=== PATIENT | female | born 1935 | race Caucasian/White ===

== ENCOUNTER 2017-12-08 12:01 | Inpatient (IN) | payer MEDICARE, MEDICAID, SELFPAY ==
[2017-12-08 12:02] VITALS: BMI 22.4
--- NOTE | 2017-12-08 12:03 | XR_ITS ---
XR chest portable COMPARISON: None HISTORY: Shortness of TECHNIQUE: Portable upright chest FINDINGS: This a poor inspiratory effort. There are coarse bronchovascular markings in right perihilar region and right lower lobe. Minimal accentuated markings are seen right upper lobe, left lung field is clear. Cardiac size is normal. There are sternal wire sutures noted. IMPRESSION: Findings suggesting right lower lobe bronchopneumonia with questionable right upper lobe involvement as well.
[2017-12-08 12:07] VITALS: BP 82/56; PULSE 85; RESP 20; TEMP 36.6; O2SAT 95; BMI 22.4
--- NOTE | 2017-12-08 12:27 | XR_ITS ---
XR acute abdomen series COMPARISON: None HISTORY: Altered mental status, TECHNIQUE: PA chest, KUB and upright abdomen FINDINGS: The chest film again shows coarse markings in right perihilar region and right lower lobe. The remainder lung lao are clear. Abdominal films show dilated loops of small bowel in the midabdomen. There is mild gaseous dilatation of the cecum and ascending colon as well. The distal small bowel loops appear to be normal in caliber. There is no evidence of free air. IMPRESSION: 1. Probable right perihilar right lower lobe bronchopneumonia 2. Abnormal bowel gas pattern with findings suggesting the possibility of an early or partial mechanical small bowel obstruction. However the dilated cecum and lower ascending colon and gas in the distal small bowel raises the possibility of an adynamic ileus. She has clinical correlation and follow-up abdominal films and 12 to 24 hours for continuing evaluation.
--- NOTE | 2017-12-08 12:27 | CT_ITS ---
CT head/brain wo con COMPARISON: None HISTORY: Altered mental status TECHNIQUE: Multiple axial scans obtained from base skull to the vertex and were performed without IV contrast. FINDINGS: The base of skull appears normal, the mastoids are clear. There is minimal mucoperiosteal thickening of the left maxillary sinus. The ventricular system is normal. There is a somewhat ill-defined hypodense lesion left internal capsule extending superiorly into the centrum semiovale ovale. Motion artifact degrades the images somewhat. There is no bleed. There are more diffuse reticular hypodensities consistent with chronic ischemic white matter changes. Sylvian fissures and cortical sulci are prominent. There are no extra-axial fluid collections. Bony calvarium appears intact. 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 If symptoms warrant follow-up MRI scan of brain may be helpful to better age the suspected ischemic infarct
--- NOTE | 2017-12-08 12:29 | HMH.EDAMS ---
ED Disposition Clinical Impression: Acute renal failure, Pneumonia, Dehydration Disposition: Home, Self-Care Condition on Discharge: Fair - Critical Care Critical Care Time: No Attestation: On 12/08/17, the high probability of a clinically significant, sudden or life threatening deterioration of the following system(s) required my full and direct attention, intervention and personal management. The time I documented below is in addition to time spent performing reported procedures but includes the following listed in this critical care notation. Medical Decision Making - Medical Records Medical records reviewed: Yes: I reviewed the patient's medical records. Vital Signs: 12/08/17 12:07 Temperature 98 F Temperature Source Oral Pulse Rate [Right Brachial] 85 Respiratory Rate 20 Blood Pressure [Right Arm] 82/56 Blood Pressure Mean [Right Arm] 64 Blood Pressure Source [Right Arm] Automatic Cuff Blood Pressure Position [Right Arm] Sitting 02 Sat by Pulse Oximetry 95 Oxygen Delivery Method Room Air - Lab Data Lab Results 12/08/17 12:20: Influenza Type A Ag Negative, Influenza Type B Ag Negative 12/08/17 12:30: WBC 18.2 H, RBC 2.69 L, Hgb 8.9 L, Hct 27.7 L, MCV 102.9 H, MCH 33.2 H, MCHC 32.3, RDW 14.1, Plt Count 89 L, MPV 11.9 H, Neut % (Auto) 80.0, Lymph % (Auto) 6.8 L, [place] % (Auto) 12.8 H, Eos % (Auto) 0.3, Baso % (Auto) 0.1, Neut # (Auto) 14.5 H, Lymph # (Auto) 1.2, [place] # (Auto) 2.3 H, Eos # (Auto) 0.1, Baso # (Auto) 0.0, Total Counted 100, Neutrophils % (Manual) 55, Band Neutrophils % 23.0 H, Lymphocytes % (Manual) 3 L, Monocytes % (Manual) 19 H, Platelet Estimate Moderate decrease, RBC Morphology Normal 12/08/17 12:30: Sodium 140, Potassium 5.5 H, Chloride 105, Carbon Dioxide 20 L, Anion Gap 20.5 H, BUN 55 H, Creatinine 4.19 H, Estimated Creat Clear 9, Estimated GFR 10 L*, Est GFR ( Amer) 12 L*, Glucose 108 H, Calcium 7.8 L, Total Bilirubin 0.6, AST 6 L, ALT 11 L, Alkaline Phosphatase 120 H, Total Creatine Kinase 34, CK-MB (CK-2) 1.5, CK-MB (CK-2) Rel Index 4.4 H, Troponin I < 0.02, Total Protein 7.0, Albumin 2.8 L, Globulin 4.2 H, Albumin/Globulin Ratio 0.7 L, TSH 1.57, Free T4 2.75 H 12/08/17 12:30: Lactic Acid 2.2 H 12/08/17 12:42: Specimen Source Right radial, O2 % Room air, ABG pH 7.39, ABG pCO2 27.2 L, ABG pO2 63.1 L, ABG HCO3 16.0 L, ABG Total CO2 16.9 L, ABG O2 Saturation 92, ABG Base Excess -9.0 L, Yovani Test Acceptable Result diagrams: 12/08/17 12:30 12/08/17 12:30 Orders (Tests/Meds): ED MEDICATIONS Generic Name Dose Route Start Last Admin Trade Name Freq PRN Reason Stop Dose Admin Sodium Chloride 1,000 mls @ 500 mls/hr 12/08/17 13:00 Sod Chlor 0.9% 1000ml Bag IV 01/07/18 12:59 .Q2H HIRAM Cefepime HCl 1 gm/ Sodium 100 mls @ 200 mls/hr 12/08/17 13:00 Chloride IV 12/22/17 12:59 Q12H [facility] Protocol Levofloxacin/Dextrose 750 mg in 150 mls @ 100 mls/hr 12/08/17 13:00 Levofloxacin 750mg/150ml Premix IV 12/22/17 12:59 Q24H [facility] Protocol ORDERS Category Date Time Status CT head/brain wo con Stat Cat Scan 12/08/17 12:27 Taken XR acute abdomen series Stat Exams 12/08/17 12:27 Taken XR chest portable Stat Exams 12/08/17 12:03 Taken Lactic Acid Follow Up (4 hr) Stat Lab 12/08/17 13:03 Ordered Urinalysis and Microscopic Stat Lab 12/08/17 12:27 Ordered Blood Culture Stat Micro 12/08/17 12:30 Received ABG [Arterial Blood Gas] Stat RT 12/08/17 12:27 Ordered - Radiology Data #1 Image(s): Chest Image Reviewed: Yes I reviewed the patient's radiology image Preliminary Findings: Abnormal Increased density in the right perihilar lesion, new lingular infiltrates. Impression pneumonia. - ECG Data Tracing #1 Sinus bradycardia 58/min baseline artifact no acute findings, unchanged from March 04, 2015. I reviewed her EKG rhythm strip from the ambulance that showed T-wave inversion in lead III this is absent in the 1
--- NOTE | 2017-12-08 12:41 | ED_ITS ---
ED Disposition Clinical Impression: Acute renal failure, Pneumonia, Dehydration Disposition: Home, Self-Care Condition on Discharge: Fair - Critical Care Critical Care Time: No Attestation: On 12/08/17, the high probability of a clinically significant, sudden or life threatening deterioration of the following system(s) required my full and direct attention, intervention and personal management. The time I documented below is in addition to time spent performing reported procedures but includes the following listed in this critical care notation. Medical Decision Making - Medical Records Medical records reviewed: Yes: I reviewed the patient's medical records. Vital Signs: 12/08/17 12:07 Temperature 98 F Temperature Source Oral Pulse Rate [Right Brachial] 85 Respiratory Rate 20 Blood Pressure [Right Arm] 82/56 Blood Pressure Mean [Right Arm] 64 Blood Pressure Source [Right Arm] Automatic Cuff Blood Pressure Position [Right Arm] Sitting 02 Sat by Pulse Oximetry 95 Oxygen Delivery Method Room Air - Lab Data Lab Results 12/08/17 12:20: Influenza Type A Ag Negative, Influenza Type B Ag Negative 12/08/17 12:30: WBC 18.2 H, RBC 2.69 L, Hgb 8.9 L, Hct 27.7 L, MCV 102.9 H, MCH 33.2 H, MCHC 32.3, RDW 14.1, Plt Count 89 L, MPV 11.9 H, Neut % (Auto) 80.0, Lymph % (Auto) 6.8 L, [place] % (Auto) 12.8 H, Eos % (Auto) 0.3, Baso % (Auto) 0.1 , Neut # (Auto) 14.5 H, Lymph # (Auto) 1.2, [place] # (Auto) 2.3 H, Eos # (Auto) 0.1, Baso # (Auto) 0.0, Total Counted 100, Neutrophils % (Manual) 55, Band Neutrophils % 23.0 H, Lymphocytes % (Manual) 3 L, Monocytes % (Manual) 19 H, Platelet Estimate Moderate decrease, RBC Morphology Normal 12/08/17 12:30: Sodium 140, Potassium 5.5 H, Chloride 105, Carbon Dioxide 20 L, Anion Gap 20.5 H, BUN 55 H, Creatinine 4.19 H, Estimated Creat Clear 9, Estimated GFR 10 L*, Est GFR ( Amer) 12 L*, Glucose 108 H, Calcium 7.8 L , Total Bilirubin 0.6, AST 6 L, ALT 11 L, Alkaline Phosphatase 120 H, Total Creatine Kinase 34, CK-MB (CK-2) 1.5, CK-MB (CK-2) Rel Index 4.4 H, Troponin I < 0.02, Total Protein 7.0, Albumin 2.8 L, Globulin 4.2 H, Albumin/Globulin Ratio 0.7 L, TSH 1.57, Free T4 2.75 H 12/08/17 12:30: Lactic Acid 2.2 H 12/08/17 12:42: Specimen Source Right radial, O2 % Room air, ABG pH 7.39, ABG pCO2 27.2 L, ABG pO2 63.1 L, ABG HCO3 16.0 L, ABG Total CO2 16.9 L, ABG O2 Saturation 92, ABG Base Excess -9.0 L, Yovani Test Acceptable Result diagrams: 12/08/17 12:30 12/08/17 12:30 Orders (Tests/Meds): ED MEDICATIONS Generic Name Dose Route Start Last Admin Trade Name Timq PRN Reason Stop Dose Admin Sodium Chloride 1,000 mls @ 500 mls/hr 12/08/17 13:00 Sod Chlor 0.9% 1000ml Bag IV 01/07/18 12:59 .Q2H HIRAM Cefepime HCl 1 gm/ Sodium 100 mls @ 200 mls/hr 12/08/17 13:00 Chloride IV 12/22/17 12:59 Q12H [facility] Protocol Levofloxacin/Dextrose 750 mg in 150 mls @ 100 mls/hr 12/08/17 13:00 Levofloxacin 750mg/150ml Premix IV 12/22/17 12:59 Q24H HIRAM Protocol ORDERS Category Date Time Status CT head/brain wo con Stat Cat Scan 12/08/17 12:27 Taken XR acute abdomen series Stat Exams 12/08/17 12:27 Taken XR chest portable Stat Exams 12/08/17 12:03 Taken Lactic Acid Follow Up (4 hr) Stat Lab 12/08/17 13:03 Ordered Urinalysis and Microscopic Stat Lab 12/08/17 12:27 Ordered
[2017-12-08 12:49] LABS: ABG Oxygen Saturation 92 % (90-100); ABG PCO2 27.2 mmhg (35.0-45.0); ABG PH 7.39 mmol/L (7.35-7.45); ABG PO2 63.1 mmhg (80-100); ABG TCO2 16.9 mmhg (23-27)
[2017-12-08 12:49] LABS: Basophils % 0.1 % (0.1-2.0); Eosinophils # 0.1 K/mm3 (0.0-0.4); Eosinophils % 0.3 % (0.1-12.0); Hematocrit 27.7 % (37.0-47.0); Hemoglobin 8.9 g/dL (12.2-16.2); Lymphocytes # 1.2 K/mm3 (0.7-4.5); Lymphocytes % 6.8 K/mm3 (10-50); Mean Corpuscular HGB Conc 32.3 g/dL (31.8-35.4); Mean Corpuscular Hemoglobin 33.2 pg (27.0-31.2); Mean Corpuscular Volume 102.9 fl (81-99); Mean Platelet Volume 11.9 fl (7.4-10.4); Monocytes # 2.3 K/mm3 (0.1-1.0); Monocytes % 12.8 % (1.7-9.3); Neutrophils # 14.5 K/mm3 (1.8-7.8); Platelet Count 89 K/mm3 (142-424); Red Blood Count 2.69 M/mm3 (4.20-5.40); Red Cell Distribution Width 14.1 % (11.5-17.5); White Blood Count 18.2 K/mm3 (4.8-10.8)
[2017-12-08 12:50] LABS: Allen's Test ACCEPTABLE; Oxygen ROOM AIR %; Source Right Radial
[2017-12-08 12:52] LABS: MANUAL DIFFERENTIAL MANUAL DIFFERENTIAL (MANUAL DIFF)
[2017-12-08 13:02] LABS: Lactic Acid 2.2 mmol/L (0.4-2.0)
[2017-12-08 13:03] LABS: Reflex Lactic Add Lactic Reflex
[2017-12-08 13:05] LABS: Lymphocytes % 3 % (10-50); Monocytes % 19 % (2-9); Neutrophils % 55 % (42-76); Total Cells Counted 100
[2017-12-08 13:06] LABS: Platelet Estimate Moderate Decrease; RBC Morphology Normal
[2017-12-08 13:14] LABS: Alanine Aminotransferase 11 U/L (12-78); Albumin Level 2.8 gm/dL (3.4-5.0); Albumin/Globulin Ratio 0.7 (1.1-1.8); Alkaline Phosphatase 120 U/L (46-116); Anion Gap 20.5 mEq/L (5-15); Aspartate Amino Transferase 6 U/L (15-37); Bilirubin,Total 0.6 mg/dL (0.2-1.0); Blood Urea Nitrogen 55 mg/dL (7-18); CKMB Relative Index 4.4 U/L (0-4.0); Calcium 7.8 mg/dL (8.5-10.1); Carbon Dioxide 20 mmol/L (21.0-32.0); Chloride 105 mmol/L (98-107); Creatine Kinase 34 U/L (26-192); Creatine Kinase MB 1.5 mg/ml (0.0-3.6); Creatinine Clearance Estimated 9 mL/min (0-300); Estimated Glomerular Filt Rate 10 ml/min (>60); Free T4 (Free Thyroxine) 2.75 ng/dl (0.76-1.46); GFR (African American) 12 ML/MIN (>60); Globulin 4.2 gm/dl (1.3-3.2); Glucose 108 mg/dL (74-106); Potassium 5.5 mmoL/L (3.5-5.1); Sodium 140 mmol/L (136-145); Thyroid Stimulating Hormone 1.57 uIU/ml (0.358-3.740); Troponin I < 0.02 ng/ml (0.00-0.06)
[2017-12-08 13:16] LABS: Creatinine,Serum 4.19 mg/dL (0.55-1.02)
[2017-12-08 14:28] VITALS: BP 110/50; PULSE 76; RESP 18; TEMP 37.7; O2SAT 100; BMI 19.1
[2017-12-08 15:18] VITALS: BP 122/50; PULSE 81; RESP 18; TEMP 36.8; O2SAT 98
[2017-12-08 15:23] VITALS: BP 85/50; PULSE 67; RESP 18; O2SAT 96
--- NOTE | 2017-12-08 16:15 | HMH.HP ---
*Admission Date: 12/08/17 *Chief complaint: Mental status change, hypoxia *History of present illness: 82-year-old white female, resident [place] local [facility], this morning noted to have low oxygen saturations, mental status change and lethargy, elevated temperature, brought to emergency department where workup revealed lingular infiltrate and leukocytosis. Evidence of dehydration with increased creatinine over baseline. Admitted to hospital for IV fluids, broad-spectrum IV antibiotics given healthcare acquired pneumonia and supportive care. [facility] History I have reviewed the patient's past medical history: Yes Medical History: Reports:: Coronary Artery Disease, Cerebrovascular Accident, Transient Ischemic Attacks (TIA) Other Medical History: Reports: Anemia, Thyroid Disease Other Surgeries: Yes: Other (PEG placement/mesh placement in the past) - *Social History Educational Level: Completed High School Alcohol Intake: never - Psychiatric History Expresses thoughts of harming self/others: None Suicide Plan Description: No Plan Review of Systems - Review of Systems Review of systems:: unable to obtain, other, pertinent systems reviewed and negative unless documented below - Constitutional Reports fatigue, Reports fever(s) - *Cardiovascular Denies chest pain, Denies chest pain at rest, Denies chest pain with activity - *Respiratory Reports chest congestion, Reports cough, Denies change in phlegm color - *Gastrointestinal Reports abdominal pain, Reports loose stools Comments: Tonic diarrhea for several years Meds Home Medications Medication Instructions Recorded Confirmed Type Amiodarone HCl [Amiodarone 200mg 200 mg PO DAILY 12/08/17 12/08/17 History Tab] Amlodipine Besylate [Norvasc 5mg 5 mg PO DAILY 12/08/17 12/08/17 History tablet] Atenolol [Atenolol 25mg Tab] 25 mg PO DIRECTED 12/08/17 12/08/17 History Azithromycin [Z-Freddy 250mg Tab] 250 mg PO UD DOSE PK 12/08/17 12/08/17 History Famotidine [Pepcid 20mg Tablet] 0 mg PO DAILY 12/08/17 12/08/17 History Fluticasone Propionate [Flonase 1 spr NS BID 12/08/17 12/08/17 History 50mcg nasal spray 16gm] Furosemide [Furosemide 40MG tAB] 40 mg PO DAILY 12/08/17 12/08/17 History L. Acidophilus/L.bulgaricus 1 each PO DIRECTED 12/08/17 12/08/17 History [Floranex Tablet] Levothyroxine Sodium 50 mcg PO DAILY 12/08/17 12/08/17 History [Levothyroxine 50mcg (0.05mg) Tab] Magic Mouthwash [Magic 0 ml PO DIRECTED 12/08/17 12/08/17 History Mouthwash;240mL [place]] Potassium Chloride [Klor-Con 20 1 tab PO DIRECTED 12/08/17 12/08/17 History mEq Packet] Psyllium Husk [Psyllium Fiber] 0.52 gm PO DAILY 12/08/17 12/08/17 History Allergies Allergy/AdvReac Type Severity Reaction Status Date / Time latex [LATEX] Allergy Mild Verified 12/08/17 13:52 lorazepam [From ATIVAN] Allergy Mild Verified 12/08/17 13:52 morphine [MORPHINE] Allergy Mild Verified 12/08/17 13:52 Penicillins [PENICILLINS] Allergy Mild Verified 12/08/17 13:52 FLU VACCINE Allergy Mild Uncoded 10/01/17 15:32 Exam Vital signs and Labs for Last 24 Hours: Temp Pulse Resp BP Pulse Ox 98.2 F 67 18 85/50 96 12/08/17 15:18 12/08/17 15:23 12/08/17 15:23 12/08/17 15:23 12/08/17 15:23 I & O for Last 24 hours: Intake & Output 12/06/17 12/07/17 12/08/17 12/09/17 11:59 11:59 11:59 11:59 Weight 118 lb 6 oz Narrative: Patient is awake, somewhat demented but responsive to commands. Daughter thinks she is much improved over admission. No scleral icterus. No jaundice. Oropharynx clear. Heart rate regular. Crackles in left lower lung field. Kyphosis noted. Abdomen is soft, multiple surgical scars. Some tenderness in the left upper quadrant but no rebound or guarding. No edema or clubbing. No significant skin breakdown. Assessment and Plan (1) Acute kidney injury superimposed on chronic kidney disease Current visit: Yes Status: Acute Categ
--- NOTE | 2017-12-08 16:18 | P.HP_ITS ---
*Admission Date: 12/08/17 *Chief complaint: Mental status change, hypoxia *History of present illness: 82-year-old white female, resident of local [facility], this morning noted to have low oxygen saturations, mental status change and lethargy, elevated temperature, brought to emergency department where workup revealed lingular infiltrate and leukocytosis. Evidence of dehydration with increased creatinine over baseline. Admitted to hospital for IV fluids, broad-spectrum IV antibiotics given healthcare acquired pneumonia and supportive care. [facility] History I have reviewed the patient's past medical history: Yes Medical History: Reports:: Coronary Artery Disease, Cerebrovascular Accident, Transient Ischemic Attacks (TIA) Other Medical History: Reports: Anemia, Thyroid Disease Other Surgeries: Yes: Other (PEG placement/mesh placement in the past) - *Social History Educational Level: Completed High School Alcohol Intake: never - Psychiatric History Expresses thoughts of harming self/others: None Suicide Plan Description: No Plan Review of Systems - Review of Systems Review of systems:: unable to obtain, other, pertinent systems reviewed and negative unless documented below - Constitutional Reports fatigue, Reports fever(s) - *Cardiovascular Denies chest pain, Denies chest pain at rest, Denies chest pain with activity - *Respiratory Reports chest congestion, Reports cough, Denies change in phlegm color - *Gastrointestinal Reports abdominal pain, Reports loose stools Comments: Tonic diarrhea for several years Meds Home Medications Medication Instructions Recorded Confirmed Type Amiodarone HCl [Amiodarone 200mg 200 mg PO DAILY 12/08/17 12/08/17 History Tab] Amlodipine Besylate [Norvasc 5mg 5 mg PO DAILY 12/08/17 12/08/17 History tablet] Atenolol [Atenolol 25mg Tab] 25 mg PO DIRECTED 12/08/17 12/08/17 History Azithromycin [Z-Freddy 250mg Tab] 250 mg PO UD DOSE PK 12/08/17 12/08/17 History Famotidine [Pepcid 20mg Tablet] 0 mg PO DAILY 12/08/17 12/08/17 History Fluticasone Propionate [Flonase 1 spr NS BID 12/08/17 12/08/17 History 50mcg nasal spray 16gm] Furosemide [Furosemide 40MG tAB] 40 mg PO DAILY 12/08/17 12/08/17 History L. Acidophilus/L.bulgaricus 1 each PO DIRECTED 12/08/17 12/08/17 History [Floranex Tablet] Levothyroxine Sodium 50 mcg PO DAILY 12/08/17 12/08/17 History [Levothyroxine 50mcg (0.05mg) Tab] Magic Mouthwash [Magic 0 ml PO DIRECTED 12/08/17 12/08/17 History Mouthwash;240mL Bot[place]le] Potassium Chloride [Klor-Con 20 1 tab PO DIRECTED 12/08/17 12/08/17 History mEq Packet] Psyllium Husk [Psyllium Fiber] 0.52 gm PO DAILY 12/08/17 12/08/17 History Allergies Allergy/AdvReac Type Severity Reaction Status Date / Time latex [LATEX] Allergy Mild Verified 12/08/17 13:52 lorazepam [From ATIVAN] Allergy Mild Verified 12/08/17 13:52 morphine [MORPHINE] Allergy Mild Verified 12/08/17 13:52 Penicillins [PENICILLINS] Allergy Mild Verified 12/08/17 13:52 FLU VACCINE Allergy Mild Uncoded 10/01/17 15:32 Exam Vital signs and Labs for Last 24 Hours: Temp Pulse Resp BP Pulse Ox 98.2 F 67 18 85/50 96 12/08/17 15:18 12/08/17 15:23 12/08/17 15:23 12/08/17 15:23 12/08/17 15:23 I & O for Last 24 hours: Intake & Output 12/06/17 12/07/17 12/08/1712/09
[2017-12-08 16:45] LABS: Lactic Acid Follow Up (RFLX 1) 3.4 (0.4-2.0); Reflex Lactic (2 hrs) Add Lactic Reflex
[2017-12-08 20:00] VITALS: BP 98/37; PULSE 60; RESP 22; TEMP 36.6; O2SAT 94
[2017-12-09] VITALS: BP 108/47; PULSE 55; RESP 20; TEMP 36.4; O2SAT 92
--- NOTE | 2017-12-09 00:35 | PC.NURSE ---
RN MADE AWARE OF ALL VITALS FOR FIRST TWO ROUNDS
--- NOTE | 2017-12-09 01:09 | PC.NURSE ---
AT 0010 PT OXYGEN LEVEL 84 PERCENT ON RA, PLACED PT ON 2L PER NC. O2 SAT UP TO 92 PERCENT ON THE 2L PER NC. WILL CONTINUE TO MONITOR.
[2017-12-09 04:00] VITALS: BP 87/49; PULSE 73; RESP 20; TEMP 36.7; O2SAT 94
--- NOTE | 2017-12-09 04:34 | PC.NURSE ---
PT NOTED TO HAVE SOME INTERMITTENT CONFUSION. HAS SLEPT INTERMITTENTLY TONIGHT. ABLE TO TURN SELF FROM SIDE TO SIDE. NO COUGH NOTED. RESPIRATIONS EVEN AND UNLABORED ON 2L PER NC THIS AM. NO BM REPORTED THIS SHIFT THUS UNABLE TO OBTAIN DIARRHEA PANEL. PT NOTED TO BE FREQUENTLY SCRATCHING AT ONE POINT. STATED SHE HAS BEEN ITCHING FOR A WHILE AND WAS NOT AWARE OF CAUSE. APPEARS TO HAVE FAINT RED SPOTS OVER CERTAIN PORTION OF BODY. IRRITATION NOTED DORY AREA AND LOWER BUTTOCKS. APPLIED BARRIER CREAM. WILL CONTINUE TO MONITOR.
[2017-12-09 06:52] LABS: Basophils % 0.2 % (0.1-2.0); Eosinophils # 0.3 K/mm3 (0.0-0.4); Eosinophils % 2.6 % (0.1-12.0); Hematocrit 26.2 % (37.0-47.0); Hemoglobin 8.7 g/dL (12.2-16.2); Lymphocytes # 1.3 K/mm3 (0.7-4.5); Lymphocytes % 11.8 K/mm3 (10-50); Mean Corpuscular HGB Conc 33.1 g/dL (31.8-35.4); Mean Corpuscular Hemoglobin 33.4 pg (27.0-31.2); Mean Corpuscular Volume 100.9 fl (81-99); Monocytes # 1.3 K/mm3 (0.1-1.0); Monocytes % 11.3 % (1.7-9.3); Neutrophils # 8.4 K/mm3 (1.8-7.8); Neutrophils % 74.1 % (37.0-80.0); Platelet Count 83 K/mm3 (142-424); Red Blood Count 2.59 M/mm3 (4.20-5.40); Red Cell Distribution Width 14.5 % (11.5-17.5); White Blood Count 11.4 K/mm3 (4.8-10.8)
--- NOTE | 2017-12-09 07:25 | P.CONPHA_ITS ---
[facility] Pharmacy VTE Monitoring - Patient Demographics Admission date: 12/08/17 Report Date: 12/09/17 Time: 07:24 Allergies/Adverse Reactions: Patient Allergies latex [LATEX] Allergy (Mild, Verified 12/08/17 13:52) lorazepam [From ATIVAN] Allergy (Mild, Verified 12/08/17 13:52) morphine [MORPHINE] Allergy (Mild, Verified 12/08/17 13:52) Penicillins [PENICILLINS] Allergy (Mild, Verified 12/08/17 13:52) FLU VACCINE Allergy (Mild, Uncoded 10/01/17 15:32) Height: 1.68 m Weight: 53.694 kg Patient Problems: Current Active Problems Acute renal failure (Acute) Pneumonia (Acute) Dehydration (Acute) Acute kidney injury superimposed on chronic kidney disease (Acute) Chronic diarrhea (Acute) - VTE Risk Labs: VTE Related Lab Results Hgb 8.7 g/dL (12.2-16.2) L 12/09/17 06:30 Hct 26.2 % (37.0-47.0) L 12/09/17 06:30 Plt Count 83 K/mm3 (142-424) L 12/09/17 06:30 BUN 55 mg/dL (7-18) H 12/08/17 12:30 Creatinine 4.19 mg/dL (0.55-1.02) H 12/08/17 12:30 Estimated Creat Clear 9 mL/min (0-300) 12/08/17 12:30 Was VTE Risk Assessment Performed: Yes VTE Score: 5 VTE Risk Level: Low Risk - Prophylaxis VTE Prophylaxis Ordered?: Yes Types of VTE Prophylaxis: TEDS Knee High Location of Applied Device: Bilateral Lower Extremeties - VTE Diagnosis Confirmed Treatment or plan recommended: Continue Current Treatment
[2017-12-09 07:44] LABS: Anion Gap 18.8 mEq/L (5-15); Blood Urea Nitrogen 61 mg/dL (7-18); Carbon Dioxide 18 mmol/L (21.0-32.0); Chloride 108 mmol/L (98-107); Creatinine Clearance Estimated 9 mL/min (0-300); Estimated Glomerular Filt Rate 11 ml/min (>60); GFR (African American) 13 ML/MIN (>60); Glucose 76 mg/dL (74-106); Magnesium 1.7 mg/dL (1.4-2.2); Potassium 4.8 mmoL/L (3.5-5.1); Sodium 140 mmol/L (136-145)
[2017-12-09 07:45] LABS: Creatinine,Serum 3.95 mg/dL (0.55-1.02)
--- NOTE | 2017-12-09 07:48 | PC.NURSE ---
Report received from Anna Berger RN
--- NOTE | 2017-12-09 07:59 | HMH.ACPN2 ---
Internal Medicine - PN: Subj *Date: 12/09/17 *Time: 07:59 Interval history: Patient states that she feels better, nursing reports that she ate a fairly good breakfast. Exam Vital signs and Labs for Last 24 Hours: Temp Pulse Resp BP Pulse Ox 98.0 F 73 20 87/49 94 L 12/09/17 04:00 12/09/17 04:00 12/09/17 04:00 12/09/17 04:00 12/09/17 04:00 Laboratory Results - last 24 hr 12/08/17 16:23: Lactic Acid Fup @ 4Hr 3.4 H 12/08/17 18:15: Lactic Acid Fup @ 2Hr 4.0 H 12/09/17 06:30: WBC 11.4 H D, RBC 2.59 L, Hgb 8.7 L, Hct 26.2 L, MCV 100.9 H, MCH 33.4 H, MCHC 33.1, RDW 14.5, Plt Count 83 L, MPV 11.0 H, Neut % (Auto) 74.1, Lymph % (Auto) 11.8, [place] % (Auto) 11.3 H, Eos % (Auto) 2.6, Baso % (Auto) 0.2, Neut # (Auto) 8.4 H, Lymph # (Auto) 1.3, [place] # (Auto) 1.3 H, Eos # (Auto) 0.3, Baso # (Auto) 0.0 12/09/17 06:30: Sodium 140, Potassium 4.8, Chloride 108 H, Carbon Dioxide 18 L, Anion Gap 18.8 H, BUN 61 H, Creatinine 3.95 H, Estimated Creat Clear 9, Estimated GFR 11 L*, Est GFR ( Amer) 13 L*, Glucose 76 D, Magnesium 1.7 I & O for Last 24 hours: Intake & Output 12/06/17 12/07/17 12/08/17 12/09/17 11:59 11:59 11:59 11:59 Intake Total 1819 / 1820 Balance 1819 / 0 Weight 118 lb 6 oz Narrative: Patient is lying in bed. Lungs are clear, patient is alert, pleasant, demented. Heart rate regular. Assessment and Plan (1) Acute kidney injury superimposed on chronic kidney disease Current visit: Yes Status: Acute Category: Medical Code(s): N17.9 - Acute kidney failure, unspecified; N18.9 - Chronic kidney disease, unspecified (2) Chronic diarrhea Current visit: Yes Status: Acute Category: Medical Code(s): K52.9 - Noninfective gastroenteritis and colitis, unspecified (3) Pneumonia Current visit: Yes Status: Acute Category: Medical Code(s): J18.9 - Pneumonia, unspecified organism (4) Dehydration Current visit: Yes Status: Acute Category: Medical Code(s): E86.0 - Dehydration - Assessment and plan all Dx Assessment and Plan for all problems:: Overall patient seems to be improved clinically and with laboratory criteria. Creatinine is improving. Continue cautious IV fluids. Check labs tomorrow. [facility].
[2017-12-09 08:00] VITALS: BP 91/50; PULSE 71; RESP 20; TEMP 36.4; O2SAT 92
--- NOTE | 2017-12-09 10:52 | SW/DCPLANNER ---
MS MCCORD PRESENTED INTO THE HOSPITAL WITH PNEUMONIA, SHE IS A LONG STANDING RESIDENT OF [place] AND IS ON A BEDHOLD THERE.. SHE WILL BE RETURNING BACK TO HER ASSISTED BED POST HOSPITAL STAY...DISPOSITION UNCERTAIN, CM WILL FOLLOW AND ASSIST INDICATED..
[2017-12-09 11:26] VITALS: BP 94/41; PULSE 72; RESP 18; TEMP 37.6; O2SAT 90
--- NOTE | 2017-12-09 14:40 | PC.NURSE ---
INTERDISCIPLINARY CARE CONFERENCE COMPLETED WITH PATIENT, NURSING, PHARMACY, DIETARY, AND CASE MANAGEMENT
[2017-12-09 14:53] VITALS: BMI 19.0
[2017-12-09 16:00] VITALS: BP 101/46; PULSE 78; RESP 18; TEMP 37.4; O2SAT 92
--- NOTE | 2017-12-09 17:12 | PC.NURSE ---
Pt A&Ox2 in NAD. VSS. Afebrile. Lungs CTA and diminished. Heart rate reg. Abd soft and non-tender /c active BS x4 quads. Pt incontinent of bowel/bladder. (L)AC IV pulled out. New site obtained via (R) FA. 0.45% NaCl infusing @ 50ml/hr /s difficulty. BLE knee LESVIA hose in place. No c/o verbalized this shift. Will continue to monitor. Bed in low position. Bed alarm active. Call nicole within reach.
--- NOTE | 2017-12-09 19:01 | PC.NURSE ---
Report given to Oksana Perez RN
[2017-12-09 20:00] VITALS: BP 93/40; PULSE 67; RESP 20; TEMP 37.2; O2SAT 98
[2017-12-10] VITALS: BP 116/55; PULSE 60; RESP 22; TEMP 37.1; O2SAT 90
[2017-12-10 04:00] VITALS: BP 115/46; PULSE 89; RESP 18; TEMP 37.1; O2SAT 90
--- NOTE | 2017-12-10 05:54 | PC.NURSE ---
Patient resting in bed at this time. No sign or symptom of distress noted at this time. Off and on throughout the night patient would yell for help and state that she need to get up and get ready for work. Patient confused off and on through the shift. Redirected multiple times.
[2017-12-10 06:53] LABS: Basophils % 0.1 % (0.1-2.0); Eosinophils # 0.1 K/mm3 (0.0-0.4); Eosinophils % 2.3 % (0.1-12.0); Hematocrit 26.2 % (37.0-47.0); Hemoglobin 8.3 g/dL (12.2-16.2); Lymphocytes # 0.5 K/mm3 (0.7-4.5); Lymphocytes % 11.6 K/mm3 (10-50); Mean Corpuscular HGB Conc 31.8 g/dL (31.8-35.4); Mean Corpuscular Hemoglobin 32.8 pg (27.0-31.2); Mean Corpuscular Volume 103.2 fl (81-99); Mean Platelet Volume 11.9 fl (7.4-10.4); Monocytes # 0.5 K/mm3 (0.1-1.0); Monocytes % 11.2 % (1.7-9.3); Neutrophils # 3.3 K/mm3 (1.8-7.8); Neutrophils % 74.8 % (37.0-80.0); Platelet Count 74 K/mm3 (142-424); Red Blood Count 2.54 M/mm3 (4.20-5.40); Red Cell Distribution Width 14.4 % (11.5-17.5); White Blood Count 4.3 K/mm3 (4.8-10.8)
[2017-12-10 07:03] LABS: Anion Gap 15.2 mEq/L (5-15); Blood Urea Nitrogen 42 mg/dL (7-18); Carbon Dioxide 20 mmol/L (21.0-32.0); Chloride 106 mmol/L (98-107); Creatinine Clearance Estimated 15 mL/min (0-300); Creatinine,Serum 2.42 mg/dL (0.55-1.02); Estimated Glomerular Filt Rate 19 ml/min (>60); GFR (African American) 23 ML/MIN (>60); Glucose 86 mg/dL (74-106); Potassium 4.2 mmoL/L (3.5-5.1); Sodium 137 mmol/L (136-145)
--- NOTE | 2017-12-10 07:27 | PC.NURSE ---
Received report from Oksana Perez RN
[2017-12-10 07:34] VITALS: BP 120/62; PULSE 85; RESP 20; O2SAT 92
--- NOTE | 2017-12-10 07:35 | PC.NURSE ---
REPORT GIVE TO Anna KIM W/C
[2017-12-10 08:00] VITALS: O2SAT 84
--- NOTE | 2017-12-10 08:31 | HMH.DCSUM ---
General - General Admission date: 12/08/17 Discharge date: 12/10/17 HPI HPI: 82-year-old white female, resident of local longterm, this morning noted to have low oxygen saturations, mental status change and lethargy, elevated temperature, brought to emergency department where workup revealed lingular infiltrate and leukocytosis. Evidence of dehydration with increased creatinine over baseline. Admitted to hospital for IV fluids, broad-spectrum IV antibiotics given healthcare acquired pneumonia and supportive care. Hospital Course Hospital Course: Patient was admitted for IV antibiotics and gentle IV hydration. CT head was obtained due to her mental status changes which was negative for acute pathology. CXR showed RLL pneumonia. She was given IV Levaquin and Cefepime with resolution of leukocytosis, WBC 4.3. Patient is chronically anemic, H/H stable at 8.3/26.2 today. BUN/creatinine is improving, noted at 42/2.42 this morning. Patient has had low normal blood pressures and some bradycardia on admission. Her amiodarone, atenolol and norvasc were held throughout her stay. SBP 120 this morning. Patient is much improved and ready for discharge back to [facility] today. Discharge to [facility] on Levaquin 500 mg po Q48 hours x 4 doses and cefdinir 300mg po daily x 7 days. Dose adjustments were made due to her renal function. Hold Lasix, atenolol and norvasc. Will restart amiodarone. May consider restarting antihypertensives/lasix after resolution of acute illness. Resume diet and activity. CBC and CMP on 12/13/17. Continue oxygen at 2L/NC Objective Vital signs: Temp Pulse Resp BP Pulse Ox 98.7 F 85 20 120/62 84 L 12/10/17 04:00 12/10/17 07:34 12/10/17 07:34 12/10/17 07:34 12/10/17 08:00 Narrative: Alert and oriented at baseline. Rate and rhythm regular. No LE edema. Anterior lung lao clear. Abdomen soft and nontender Results Labs on day of discharge: Labs from last 24 hours 12/10/17 12/10/17 06:10 06:10 WBC 4.3 L D RBC 2.54 L Hgb 8.3 L Hct 26.2 L MCV 103.2 H MCH 32.8 H MCHC 31.8 RDW 14.4 Plt Count 74 L MPV 11.9 H Neut % (Auto) 74.8 Lymph % (Auto) 11.6 [place] % (Auto) 11.2 H Eos % (Auto) 2.3 Baso % (Auto) 0.1 Neut # (Auto) 3.3 Lymph # (Auto) 0.5 L [place] # (Auto) 0.5 Eos # (Auto) 0.1 Baso # (Auto) 0.0 Sodium 137 Potassium 4.2 Chloride 106 Carbon Dioxide 20 L Anion Gap 15.2 H BUN 42 H D Creatinine 2.42 H D Estimated Creat Clear 15 Estimated GFR 19 L* Est GFR ( Amer) 23 L D Glucose 86 Discharge Plan - Patient Discharge Instructions ACTIVITY: Continue current activity DIET: continue same diet Additional Instructions: Continue activity as tolerated Continue Cardiac Diet Patient Instructions: DI for Pneumonia -- Adult - Follow up Plan Disposition: Xfer [facility] Home Medications: Home Medications Medication Instructions Recorded Confirmed Type Amiodarone HCl [Amiodarone 200mg 200 mg PO DAILY 12/08/17 12/08/17 History Tab] Amlodipine Besylate [Norvasc 5mg 5 mg PO DAILY 12/08/17 12/08/17 History tablet] Atenolol [Atenolol 25mg Tab] 25 mg PO DAILY 12/08/17 12/09/17 History Azithromycin [Z-Freddy 250mg Tab] 250 mg PO DAILY 12/08/17 12/09/17 History Famotidine [Pepcid 20mg Tablet] 20 mg PO BID 12/08/17 12/09/17 History Fluticasone Propionate [Flonase 2 spr NS HS 12/08/17 12/09/17 History 50mcg nasal spray 16gm] Furosemide [Furosemide 40MG tAB] 40 mg PO DAILY 12/08/17 12/08/17 History L. Acidophilus/L.bulgaricus 1 each PO BID 12/08/17 12/09/17 History [Floranex Tablet] Levothyroxine Sodium 50 mcg PO DAILY 12/08/17 12/08/17 History [Levothyroxine 50mcg (0.05mg) Tab] Potassium Chloride [Klor-Con 20 20 meq PO DAILY 12/08/17 12/09/17 History mEq Packet] Psyllium Husk [Psyllium Fiber] 0.52 gm PO BID 12/08/17 12/09/17 History Acetaminophen 500 mg PO BID 12/09/17 12/09/17 H
--- NOTE | 2017-12-10 08:41 | P.DS_ITS ---
General - General Admission date: 12/08/17 Discharge date: 12/10/17 HPI HPI: 82-year-old white female, resident [facility], this morning noted to have low oxygen saturations, mental status change and lethargy, elevated temperature, brought to emergency department where workup revealed lingular infiltrate and leukocytosis. Evidence of dehydration with increased creatinine over baseline. Admitted to hospital for IV fluids, broad-spectrum IV antibiotics given healthcare acquired pneumonia and supportive care. Hospital Course Hospital Course: Patient was admitted for IV antibiotics and gentle IV hydration. CT head was obtained due to her mental status changes which was negative for acute pathology. CXR showed RLL pneumonia. She was given IV Levaquin and Cefepime with resolution of leukocytosis, WBC 4.3. Patient is chronically anemic, H/H stable at 8.3/26.2 today. BUN/creatinine is improving, noted at 42/2.42 this morning. Patient has had low normal blood pressures and some bradycardia on admission. Her amiodarone, atenolol and norvasc were held throughout her stay. SBP 120 this morning. Patient is much improved and ready for discharge back to [facility] today. Discharge to [facility] on Levaquin 500 mg po Q48 hours x 4 doses and cefdinir 300mg po daily x 7 days. Dose adjustments were made due to her renal function. Hold Lasix, atenolol and norvasc. Will restart amiodarone. May consider restarting antihypertensives/lasix after resolution of acute illness. Resume diet and activity. CBC and CMP on 12/13/17. Continue oxygen at 2L/NC Objective Vital signs: Temp Pulse Resp BP Pulse Ox 98.7 F 85 20 120/62 84 L 12/10/17 04:00 12/10/17 07:34 12/10/17 07:34 12/10/17 07:34 12/10/17 08:00 Narrative: Alert and oriented at baseline. Rate and rhythm regular. No LE edema. Anterior lung lao clear. Abdomen soft and nontender Results Labs on day of discharge: Labs from last 24 hours 12/10/17 12/10/17 06:10 06:10 WBC 4.3 L D RBC 2.54 L Hgb 8.3 L Hct 26.2 L MCV 103.2 H MCH 32.8 H MCHC 31.8 RDW 14.4 Plt Count 74 L MPV 11.9 H Neut % (Auto) 74.8 Lymph % (Auto) 11.6 [place] % (Auto) 11.2 H Eos % (Auto) 2.3 Baso % (Auto) 0.1 Neut # (Auto) 3.3 Lymph # (Auto) 0.5 L [place] # (Auto) 0.5 Eos # (Auto) 0.1 Baso # (Auto) 0.0 Sodium 137 Potassium 4.2 Chloride 106 Carbon Dioxide 20 L Anion Gap 15.2 H BUN 42 H D Creatinine 2.42 H D Estimated Creat Clear 15 Estimated GFR 19 L* Est GFR ( Amer) 23 L D Glucose 86 Discharge Plan - Patient Discharge Instructions ACTIVITY: Continue current activity DIET: continue same diet Additional Instructions: Continue activity as tolerated Continue Cardiac Diet Patient Instructions: DI for Pneumonia -- Adult - Follow up Plan Disposition: Xfer [facility] Home Medications: Home Medications Medication Instructions Recorded Confirmed Type Amiodarone HCl [Amiodarone 200mg 200 mg PO DAILY 12/08/17 12/08/17 History Tab] Amlodipine Besylate [Norvasc 5mg 5 mg PO DAILY 12/08/17 12/08/17 History tablet] Atenolol [Atenolol 25mg Tab] 25 mg PO JADE
--- NOTE | 2017-12-10 10:08 | PC.NURSE ---
Report called [facility] and spoke with Ruby.
== END 2017-12-10 10:46 | DRG 195 ==
LOC: ER 12:25 → 2ND 13:18
PROVIDERS: Admitting Provider Internal Medicine Adolescent Medicine; Emergency Provider Emergency Medicine; PCP Internal Medicine Adolescent Medicine; Visit Provider Internal Medicine Adolescent Medicine
DX: J18.9 Pneumonia, unspecified organism (principal); I48.91 Unspecified atrial fibrillation; E86.0 Dehydration; F03.90 Unspecified dementia, unspecified severity, without behavioral disturbance, psychotic disturbance, mood disturbance, and anxiety; E03.9 Hypothyroidism, unspecified; K52.9 Noninfective gastroenteritis and colitis, unspecified; I25.10 Atherosclerotic heart disease of native coronary artery without angina pectoris; Z86.73 Personal history of transient ischemic attack (TIA), and cerebral infarction without residual deficits; Y95 Nosocomial condition
CPT/HCPCS: 36415; 70450; 71045; 74021; 80048; 80053; 82550; 82553; 82803; 83605; 83735; 84439; 84443; 84484; 85007; 85025; 87040; 87275; 87276; 93005; 96365; 96366; 99283; J0692; J1956

== ENCOUNTER → 2017-12-14 08:53 | Outpatient (CLI) | payer MEDICARE, MEDICAID, SELFPAY ==
[2017-12-14] VITALS (23 sets, daily range): BP systolic 94–143; BP diastolic 47–88; PULSE 74–103; RESP 20–24; TEMP 36.1–37.2; O2SAT 92–100; BMI 19.9
--- NOTE | 2017-12-14 10:08 | PC.NURSE ---
spoke with elaina peguero at 0940. informed that outpt is complaining of nausea at this time. order received for zofran 4mg iv q6hp nausea
[2017-12-14 10:21] LABS: Basophils % 0.1 % (0.1-2.0); Hemoglobin 8.1 g/dL (12.2-16.2); Lymphocytes # 0.5 K/mm3 (0.7-4.5); Lymphocytes % 28.6 K/mm3 (10-50); Mean Corpuscular HGB Conc 31.1 g/dL (31.8-35.4); Mean Corpuscular Volume 106.2 fl (81-99); Mean Platelet Volume 12.3 fl (7.4-10.4); Monocytes # 0.4 K/mm3 (0.1-1.0); Monocytes % 20.4 % (1.7-9.3); Neutrophils # 0.9 K/mm3 (1.8-7.8); Neutrophils % 48.8 % (37.0-80.0); Platelet Count 53 K/mm3 (142-424); Red Blood Count 2.45 M/mm3 (4.20-5.40); Red Cell Distribution Width 14.1 % (11.5-17.5); White Blood Count 1.8 K/mm3 (4.8-10.8)
[2017-12-14 10:25] LABS: MANUAL DIFFERENTIAL MANUAL DIFFERENTIAL (MANUAL DIFF)
[2017-12-14 11:24] LABS: Lymphocytes % 20 % (10-50); Monocytes % 20 % (2-9); Neutrophils % 60 % (42-76); Platelet Estimate Moderate Decrease; Total Cells Counted 50
[2017-12-14 11:25] LABS: RBC Morphology Normal
[2017-12-14 19:10] LABS: Hematocrit 33.9 % (37.0-47.0)
[2017-12-14 19:35] LABS: Hemoglobin 10.8 g/dL (12.2-16.2)
--- NOTE | 2017-12-14 19:37 | PC.NURSE ---
notified dr jhaveri as well as [facility] that the pt wbc was 1.8. no new orders from
--- NOTE | 2017-12-14 19:38 | PC.NURSE ---
2nd unit of blood was received from lab at 1537. blood was verified with eloy kohler rn at 1545. computer did not save verification on tar.
--- NOTE | 2017-12-14 21:18 | PC.NURSE ---
Pt left floor at 2100 with [facility]. Iv was discontinued, tip intact. Post H&H was 10.8. Report was given to Stephania Merino at [facility]. Pt stable at discharge.
== END ==
PROVIDERS: PCP Internal Medicine Adolescent Medicine; Visit Provider Nurse Practitioner Family
DX: D64.9 Anemia, unspecified (principal)
CPT/HCPCS: 36415; 36430; 85007; 85014; 85018; 85025; 86850; G0463; J2405; P9016

== ENCOUNTER → 2017-12-25 10:46 | Outpatient (CLI) | payer MEDICARE, MEDICAID, SELFPAY ==
[2017-12-25 11:16] LABS: Basophils % 0.2 % (0.1-2.0); Eosinophils % 0.1 % (0.1-12.0); Hematocrit 35.8 % (37.0-47.0); Hemoglobin 10.9 g/dL (12.2-16.2); Lymphocytes # 0.9 K/mm3 (0.7-4.5); Lymphocytes % 16.5 K/mm3 (10-50); Mean Corpuscular HGB Conc 30.5 g/dL (31.8-35.4); Mean Corpuscular Hemoglobin 30.4 pg (27.0-31.2); Mean Corpuscular Volume 99.6 fl (81-99); Mean Platelet Volume 13.3 fl (7.4-10.4); Monocytes # 0.9 K/mm3 (0.1-1.0); Monocytes % 16.9 % (1.7-9.3); Neutrophils # 3.6 K/mm3 (1.8-7.8); Neutrophils % 66.3 % (37.0-80.0); Red Cell Distribution Width 13.9 % (11.5-17.5); Reticulocyte % (Auto) 0.4 % (0.9-3.2); White Blood Count 5.4 K/mm3 (4.8-10.8)
[2017-12-25 11:54] LABS: Alanine Aminotransferase 15 U/L (12-78); Albumin Level 2.5 gm/dL (3.4-5.0); Albumin/Globulin Ratio 0.6 (1.1-1.8); Alkaline Phosphatase 92 U/L (46-116); Anion Gap 11.1 mEq/L (5-15); Aspartate Amino Transferase 12 U/L (15-37); Bilirubin,Total 0.5 mg/dL (0.2-1.0); Blood Urea Nitrogen 20 mg/dL (7-18); Calcium 8.4 mg/dL (8.5-10.1); Carbon Dioxide 30 mmol/L (21.0-32.0); Chloride 104 mmol/L (98-107); Creatinine,Serum 1.12 mg/dL (0.55-1.02); Estimated Glomerular Filt Rate 47 ml/min (>60); GFR (African American) 56 ML/MIN (>60); Globulin 4.5 gm/dl (1.3-3.2); Glucose 86 mg/dL (74-106); Potassium 3.1 mmoL/L (3.5-5.1); Sodium 142 mmol/L (136-145); Thyroid Stimulating Hormone 0.21 uIU/ml (0.358-3.740)
[2017-12-25 12:21] LABS: Platelet Count 43 K/mm3 (142-424)
[2017-12-25 15:53] LABS: Ferritin 1045 ng/mL (8-388)
[2017-12-26 08:25] LABS: Iron 30 ug/dL (27-139); Iron Saturation 18 % (15-55); UIBC 140 ug/dL (118-369)
[2017-12-27 15:21] LABS: Vitamin B12 1384 pg/mL (232-1245)
== END ==
PROVIDERS: Visit Provider Nurse Practitioner
DX: D61.818 Other pancytopenia (principal); D64.9 Anemia, unspecified; R53.1 Weakness; R11.0 Nausea; R10.9 Unspecified abdominal pain
CPT/HCPCS: 36415; 80053; 82607; 82728; 82746; 83550; 84443; 85025; 85044